=== PATIENT | male | born 1960 | race Caucasian/White ===

== ENCOUNTER → 2018-12-19 | Outpatient (CLI) | payer OTHER ==
--- NOTE | 2018-12-19 11:12 | MR ---
EXAMINATION TYPE: MR lumbar spine wo con DATE OF EXAM: 12/19/2018 COMPARISON: NONE HISTORY: Low back pain TECHNIQUE: T1 and T2 axial and sagittal images of the lumbar spine are submitted. FINDINGS: There is no abnormal signal seen within the visualized spinal cord or paraspinal soft tissu es. At T12-L1 there is no disc herniation or canal stenosis. No foraminal encroachment. At L1-2 there is loss of disc signal and space compatible degenerative disc disease. Neural foramina are patent. No canal stenosis or focal herniation. At L2-3 there is loss of disc signal. There is mild hypertrophy of the facets. There is no focal disc herniation or canal stenosis. There is mild circumferential disc bulging with mild bilateral foramin al encroachment. At L3-4 there is loss of disc signal but no discrete herniation or foraminal encroachment. No Canal s tenosis. At L4-5 there is there is broad-based central disc protrusion with mild to moderate effacement of the marcell sac. There is mild bilateral foraminal encroachment. Mild hypertrophic change of the facets. At L5-S1 there is no disc herniation or canal stenosis. No foraminal encroachment. Mild facet arthrop athy noted. IMPRESSION: 1. Broad-based central disc protrusion L4-L5 resulting in moderate effacement of thecal sac and mild central stenosis with bilateral mild foraminal encroachment. 2. Multilevel degenerative disc disease. 3. Suggestion of a probable gallstones.
== END | disposition home or self-care (01) ==
LOC: RADMRIMAIN 10:17
PROVIDERS: ATTEND Family Medicine
DX: M51.36 Other intervertebral disc degeneration, lumbar region (principal); M51.26 Other intervertebral disc displacement, lumbar region
CPT/HCPCS: 72148

== ENCOUNTER → 2019-02-05 | Outpatient (CLI) | payer OTHER ==
--- NOTE | 2019-02-05 12:37 | NM ---
EXAMINATION TYPE: NM hepatobiliary w EF DATE OF EXAM: 02/05/2019 COMPARISON: NONE HISTORY: Abdominal pain TECHNIQUE: After the intravenous administration of 4.2 mCi Tc 99m Mebrofenin hepatobiliary scintigrap hy is performed. Immediate images post injection. FINDINGS: There is satisfactory initial accumulation of tracer by the liver. The gallbladder is visualized wit hin 8 minutes. The small bowel activity is noted within 28 minutes. At one hour 8 ounces of oral en sure plus is given to mimic CCK and gallbladder ejection fraction is calculated at 48 %, in the scarlett l range. Therefore there is no scintigraphic evidence of cystic or common bile duct obstruction to s uggest acute cholecystitis or gallbladder dyskinesia. IMPRESSION: Exam is within normal limits.
== END ==
LOC: RADNMMAIN 06:41
PROVIDERS: ATTEND Family Medicine
DX: R10.9 Unspecified abdominal pain (principal)
CPT/HCPCS: 78226; A9537

== ENCOUNTER → 2019-02-17 | Outpatient (CLI) | payer OTHER ==
--- NOTE | 2019-02-17 09:55 | FL ---
EXAMINATION TYPE: FL UGI w KUB DATE OF EXAM: 02/17/2019 CLINICAL HISTORY: 58-year-old male with stomach pain and bloating after meals, abdominal pain. TECHNIQUE: A double contrast UGI study is performed. Total fluoroscopy time: 1 minute 9 seconds. Total images: 23. COMPARISON: None FINDINGS: ACDF hardware. The esophagus shows normal motility and emptying into the stomach. No evidence of hiatal hernia or stricture noted. There is trace spontaneous gastroesophageal reflux when the patient is supine. The stomach shows normal distensibility, peristalsis, and mucosal folds. No evidence of any mass or ulcer disease. The stomach appears normally positioned. The duodenal bulb and sweep are unremarkable. IMPRESSION: 1. Trace spontaneous gastroesophageal reflux when the patient is supine. No hiatal hernia seen. 2. Otherwise, unremarkable upper GI examination.
== END | disposition home or self-care (01) ==
LOC: RADUSWWP 08:26
PROVIDERS: ATTEND Family Medicine
DX: R10.9 Unspecified abdominal pain (principal)
CPT/HCPCS: 74240

== ENCOUNTER → 2021-05-17 | Outpatient (CLI) | payer OTHER ==
--- NOTE | 2021-05-17 09:16 | CT ---
EXAMINATION TYPE: CT sinus wo con DATE OF EXAM: 05/17/2021 COMPARISON: None HISTORY: Chronic Sinusitis CT DLP: 609.4 mGycm. Automated Exposure Control for Dose Reduction was Utilized. TECHNIQUE: CT scan of the sinuses is performed without contrast, axial images are obtained, coronal r eformatted images are also reviewed. FINDINGS: The paranasal sinuses including the frontal, ethmoid, sphenoid, and maxillary sinuses bila terally are well-aerated without abnormal opacification, minimal mucosal disease present in the front al ethmoidal region. The ostiomeatal complex is patent bilaterally on the coronal images. Visualized portion of mastoid air cells show no abnormal opacification. The globes are intact bilate rally. IMPRESSION: The sinuses show minimal inflammatory change frontal ethmoidal region on the right
== END | disposition home or self-care (01) ==
LOC: RADCTMAIN 06:23
PROVIDERS: ATTEND Family Medicine
DX: J32.1 Chronic frontal sinusitis (principal); J32.2 Chronic ethmoidal sinusitis
CPT/HCPCS: 70486

== ENCOUNTER → 2021-08-19 | Outpatient (CLI) | payer OTHER ==
--- NOTE | 2021-08-19 08:31 | MR ---
EXAMINATION TYPE: MR angio head wo con DATE OF EXAM: 08/19/2021 COMPARISON: NONE HISTORY: Vascular disease. Ear pulsation. TECHNIQUE: Time of flight images focusing on the [place] were performed without contrast.. 2-D and 3-D postprocessing imaging is performed on a independent workstation and reviewed. FINDINGS: There is codominant vertebral arteries filling the basilar artery. Slight irregularity or m ild narrowing along course of the basilar artery. Patent bilateral posterior communicating arteries. Hypoplastic left P1 segment. Filling of left P2 segment due to patent left-sided posterior communicat ing artery. No significant focal stenosis or aneurysm. Anterior circulation shows patent anterior communicating artery. No significant focal stenosis or ane urysm. IMPRESSION: No aneurysm at the level of the [place].
--- NOTE | 2021-08-19 08:37 | MR ---
EXAMINATION TYPE: MR brain wo con DATE OF EXAM: 08/19/2021 COMPARISON: CT brain June 12, 2014 HISTORY: Vascular disease. Ear pulsation. TECHNIQUE: Multiplanar, multisequence imaging of the brain and brainstem is performed without IV cont rast. FINDINGS: Diffusion weighted images demonstrate no evidence of a recent infarct or other diffusion abnormality. There is mild ventricular and sulcal prominence. Occasional focus of T2 hyperintensity scattered thro ughout the white matter bilaterally. Midline structures demonstrate normal morphology. The craniocervical junction appears within normal limits. Normal vascular flow voids are present. Mild to moderate mucosal thickening involving ethmoid sinuses bilaterally. Globes are intact bilaterally. No suspicious fluid signal bilateral mastoid air cells. IMPRESSION: Mild to minimal diffuse cerebral atrophy and chronic small vessel ischemic change. Mild c hronic ethmoid sinus disease. No suspicious finding to account for patient's symptoms.
== END | disposition home or self-care (01) ==
LOC: RADMRIMAIN 07:13
PROVIDERS: ATTEND Otolaryngology
DX: I67.82 Cerebral ischemia (principal); G31.9 Degenerative disease of nervous system, unspecified
CPT/HCPCS: 70544; 70551

== ENCOUNTER → 2022-06-01 | Outpatient (CLI) | payer OTHER ==
--- NOTE | 2022-06-02 04:32 | MR ---
EXAMINATION TYPE: MR lumbar spine wo con DATE OF EXAM: 06/01/2022 COMPARISON: 12/19/2018 HISTORY: Back pain Multiplanar multi echo imaging of the lumbar spine no contrast. The lumbar vertebrae have normal alignment. Disc spaces are fairly normal for age. There is minimal p osterior disc bulging at L4-5 and L1-L2 3. There is developmentally large spinal canal and no spinal stenosis. No lumbar paraspinal mass. Lumbar nerve roots appear normal. The neural foramina appear wid espinoza patent. No compression fracture. No focal bone destruction. Sacroiliac joints are intact. IMPRESSION: Mild posterior disc bulging as above. There is improvement at L4-5 compared to old exam. No spinal st enosis or fracture.
== END | disposition home or self-care (01) ==
LOC: RADMRIMAIN 19:09
PROVIDERS: ATTEND Family Medicine
DX: M51.16 Intervertebral disc disorders with radiculopathy, lumbar region (principal)
CPT/HCPCS: 72148

== ENCOUNTER 2022-06-29 21:40 | Emergency (ER) | payer OTHER ==
[2022-06-29] MEDS ORDERED: MORPHINE SULFATE 4 MG/ML SYRINGE IV STA (22:07)
[2022-06-29] MEDS ORDERED: ONDANSETRON 4 MG/2 ML VIAL IVP STA (22:07)
[2022-06-29] MEDS ORDERED: SODIUM CHLORIDE 0.9% 1,000 ML IV STA (22:07)
[2022-06-29 22:20] VITALS: TEMP 98.1
[2022-06-29 22:34] LABS: Basophils % (A) 0 %; Eosinophils # (A) 0.1 k/uL (0-0.7); Eosinophils % (A) 1 %; HCT 41.8 % (39.0-53.0); HGB 14.6 gm/dL (13.0-17.5); Lymphocytes # (A) 0.9 k/uL (1.0-4.8); Lymphocytes % (A) 9 %; MCH 31.9 pg (25.0-35.0); MCV 91.2 fL (80.0-100.0); Mean Platelet Volume 7.6; Monocytes # (A) 0.4 k/uL (0-1.0); Monocytes % (A) 4 %; Neutrophils % (A) 85 %; Platelet Count 235 k/uL (150-450); RBC 4.59 m/uL (4.30-5.90); RDW 12.8 % (11.5-15.5); WBC 10.5 k/uL (3.8-10.6)
[2022-06-29 22:42] LABS: INR 1.1 (<1.2); Partial Thromboplastin Time 24.9 sec (22.0-30.0); Prothrombin Time 11.6 sec (9.0-12.0)
[2022-06-29 22:50] LABS: Albumin 4.5 g/dL (3.5-5.0); Potassium 4.2 mmol/L (3.5-5.1); Total Bilirubin 1.5 mg/dL (0.2-1.3); Total Protein 7.3 g/dL (6.3-8.2)
[2022-06-29] MEDS ORDERED: HYDROmorphone 1 MG/ML 1 ML SYRINGE IVP STA (22:56)
--- NOTE | 2022-06-29 23:17 | CT ---
EXAMINATION TYPE: CT abdomen pelvis wo con DATE OF EXAM: 06/29/2022 COMPARISON: 07/19/2015 HISTORY: LEFT SIDED FLANK PAIN THAT RADIATES TO THE ABDOMEN CT DLP: 509 mGycm Automated exposure control for dose reduction was used. Images obtained from the diaphragm to the floor the pelvis with no contrast. Lung bases are clear of infiltrate. No pleural effusion. Heart size is normal. No pericardial effusio n. There are a few hepatic cysts that measure up to 2 cm. The bile ducts are not dilated. Spleen is inta ct. Stomach is intact. No evidence of pancreatic mass. Gallbladder appears normal. There is no adrenal mass. Kidneys have normal size. There is left-sided hydronephrosis and hydrourete r. There is obstructing 4 mm calculus at the left ureterovesical junction. Urinary bladder distends s moothly. No inguinal hernia. No free fluid in the pelvis. No pelvic mass. Appendix not clearly seen. No sign of thickened appendix. There is no mesenteric edema. No ascites or free air. No sign of a bowel obstruction. The bony struct ures are intact. The lumbar vertebrae have normal spacing and alignment. No compression fracture. The bony pelvis is i ntact. The hip joints are intact IMPRESSION: Obstructing calculus at the left ureterovesical junction with left-sided hydronephrosis and hydrouret er. Obstruction is new compared to old exam.
[2022-06-29 23:29] LABS: Appearance,Urine Cloudy (Clear); Bilirubin,Urine Negative (Negative); Blood,Urine Moderate (Negative); Color,Urine Yellow; Glucose,Urine (UA) Negative (Negative); Hyaline Casts,Urine 1 /lpf (0-2); Ketones,Urine Negative (Negative); Leukocyte Esterase,Urine Negative (Negative); Mucus,Urine Many /hpf; Nitrite,Urine Negative (Negative); PH, Urine 5.5 (5.0-8.0); Protein,Urine 1+ (Negative); RBC,Urine 49 /hpf (0-5); Specific Gravity,Urine 1.031 (1.001-1.035); Squamous Epithelial Cell,Urine 1 /hpf (0-4); Urobilinogen,Urine <2.0 mg/dL (<2.0); WBC,Urine 2 /hpf (0-5)
[2022-06-29] MEDS ORDERED: KETOROLAC 15 MG/ML 1 ML VIAL IVP STA (23:36)
[2022-06-29] MEDS ORDERED: TAMSULOSIN 0.4 MG CAP.ER.24H PO STA (23:36)
[2022-06-29] MEDS ORDERED: traMADol 50 MG STARTER PACK 3 TAB BTL PO STA (23:47)
--- NOTE | 2022-06-29 23:52 | ED ---
General Adult HPI - General Chief complaint: Abdominal Pain Stated complaint: Back pain Time Seen by Provider: 06/29/22 22:03 Source: patient Mode of arrival: ambulatory Limitations: no limitations - History of Present Illness Initial comments: Patient is a 61-year-old male presenting with chief complaint of left flank pain. Patient states the pain started about 3 hours ago. Pain wraps around to his side. Pain was sudden in onset. He admits to urinary urgency and frequency. Admits to nausea and vomiting. Denies abdominal pain. Denies fever, chills, hematuria, dysuria, chest pain, difficulty breathing, palpitations, weakness. - Related Data Home Medications Medication Instructions Recorded Confirmed Dicyclomine [Bentyl] 10 mg PO DIRECTED PRN MDD 6 08/06/14 05/01/16 Ibuprofen [Motrin] 800 mg PO DIRECTED PRN MDD 4 08/06/14 05/01/16 Loperamide [Imodium] 2 mg PO DIRECTED PRN MDD 8 08/06/14 05/01/16 Omeprazole [PriLOSEC] 20 mg PO AC-BRKFST 08/06/14 05/01/16 Pregabalin [Lyrica] 150 mg PO BID 08/06/14 05/01/16 traZODone HCL [Oleptro ER] 150 mg PO HS 08/06/14 05/01/16 Acetaminophen Tab [Tylenol Tab] 650 mg PO Q4H PRN 04/25/16 05/01/16 Butalb/APAP/Caff 50-325-40Mg 1 tab PO DIRECTED PRN 04/25/16 05/01/16 [Fioricet 50-325-40] Hydrocodone/Acetaminophen [Vicodin 2 tab PO DIRECTED PRN 04/25/16 05/01/16 5-300 mg Tablet] Leflunomide 10 mg PO DAILY 04/25/16 05/01/16 Sudafed (Unknown Dose) 1 tab PO DAILY PRN 04/25/16 Tamsulosin [Flomax] 0.4 mg PO HS 04/25/16 05/01/16 oxyCODONE-APAP 10-325MG [Percocet 1 tab PO Q6HR PRN MDD 6 04/25/16 05/01/16 10-325 mg] sulfaSALAzine [Azulfidine] 500 mg PO BID 04/25/16 05/01/16 Previous Rx's Medication Instructions Recorded HYDROcodone/APAP 7.5-325MG [Leroy 1 tab PO Q6HR PRN 3 Days #12 tab 06/29/22 7.5-325] Allergies Allergy/AdvReac Type Severity Reaction Status Date / Time No Known Allergies Allergy Verified 04/25/16 15:52 Review of Systems ROS Statement: Those systems with pertinent positive or pertinent negative responses have been documented in the HPI. ROS Other: All systems not noted in ROS Statement are negative. Past Medical History Past Medical History: GERD/Reflux, Musculoskeletal Disorder, Prostate Disorder, Rheumatoid Arthritis (RA) Additional Past Medical History / Comment(s): ENLARGED PROSTATE, BACK PAIN, STOMACH PAIN WITH CONSTIPATION & DIARRHEA.covid History of Any Multi-Drug Resistant Organisms: None Reported Past Surgical History: Back Surgery Additional Past Surgical History / Comment(s): CERVICAL SURGERY WITH PLASTIC VERTEBRAE , TEAR DUCTS, RIGHT ARM, SINUS SURGERY, TRIPLE HERNIA. Past Anesthesia/Blood Transfusion Reactions: No Reported Reaction Past Psychological History: No Psychological Hx Reported Smoking Status: Never smoker Past Alcohol Use History: None Reported Past Drug Use History: None Reported - Past Family History Mother Family Medical History: Cancer Father Family Medical History: Cancer General Exam Limitations: no limitations General appearance: alert, in no apparent distress Head exam: Present: atraumatic, normocephalic, normal inspection Eye exam: Present: normal appearance, PERRL, EOMI. Absent: scleral icterus, conjunctival injection, periorbital swelling Neck exam: Present: normal inspection Respiratory exam: Present: normal lung sounds bilaterally. Absent: respiratory distress, wheezes, rales, rhonchi, stridor Cardiovascular Exam: Present: regular rate, normal rhythm, normal heart sounds. Absent: systolic murmur, diastolic murmur, rubs, gallop, clicks Back exam: Present: tenderness. Absent: CVA tenderness (R), CVA tenderness (L) Neurological exam: Present: alert, oriented X3, CN II-XII intact Psychiatric exam: Present: normal affect, normal mood Skin exam: Present: warm, dry, intact, normal color. Absent: rash Course Vital Signs 06/29/22 06/29/22 06/30/22 21:49 22:11 00:13 Temperature 97.5 F L 98.1 F Pulse Rate 73 104 H 64 Respiratory 16 18 16 Rate Blood Pressure 122/81 132/86 122/78 O2 Sat by Pulse 99 98 98 Oximetry Medical Decision Making - Medical Decision Making Patient is a 61-year-old male presenting with chief complaint of left flank pain. Pain started today, numbness to nausea and vomiting. On examination there is tenderness on the left side, no CVA tenderness. No leukocytosis or anemia. Lactic acid 2.2, likely due to hydration status, patient is receiving fluids. Urine is positive for moderate blood. CT of the abdomen and pelvis shows 4 mm kidney stone. On reassessment after pain and nausea meds patient reports improvement in his symptoms. He'll be discharged with pain meds and instructions for urology follow-up. Follow-up with PCP. Report back to ER with any new or worsening symptoms. Discussed return parameters and answered all questions. Patient conveyed verbal understanding and agreed to the plan. I discussed this case in detail with my attending Dr. Rodriguez - Lab Data Result diagrams: 06/29/22 22:15 06/29/22 22:15 Lab Results 06/29/22 06/29/22 06/29/22 Range/Units 22:15 22:15 22:15 WBC 10.5 (3.8-10.6) k/uL RBC 4.59 (4.30-5.90) m/uL Hgb 14.6 (13.0-17.5) gm/dL Hct 41.8 (39.0-53.0) % MCV 91.2 (80.0-100.0) fL MCH 31.9 (25.0-35.0) pg MCHC 35.0 (31.0-37.0) g/dL RDW 12.8 (11.5-15.5) % Plt Count 235 (150-450) k/uL MPV 7.6 Neutrophils % 85 % Lymphocytes % 9 % Monocytes % 4 % Eosinophils % 1 % Basophils % 0 % Neutrophils # 9.0 H (1.3-7.7) k/uL Lymphocytes # 0.9 L (1.0-4.8) k/uL Monocytes # 0.4 (0-1.0) k/uL Eosinophils # 0.1 (0-0.7) k/uL Basophils # 0.0 (0-0.2) k/uL PT 11.6 (9.0-12.0) sec INR 1.1 (<1.2) APTT 24.9 (22.0-30.0) sec Sodium 138 (137-145) mmol/L Potassium 4.2 (3.5-5.1) mmol/L Chloride 105 (98-107) mmol/L Carbon Dioxide 19 L (22-30) mmol/L Anion Gap 14 mmol/L BUN 22 H (9-20) mg/dL Creatinine 1.56 H (0.66-1.25) mg/dL Est GFR (CKD-EPI)AfAm 54 (>60 ml/min/1.73 sqM) Est GFR (CKD-EPI)NonAf 47 (>60 ml/min/1.73 sqM) Glucose 122 H (74-99) mg/dL Lactic Ac Sepsis Rflx Plasma Lactic Acid Maurice (0.7-2.0) mmol/L Calcium 9.0 (8.4-10.2) mg/dL Total Bilirubin 1.5 H (0.2-1.3) mg/dL AST 27 (17-59) U/L ALT 24 (4-49) U/L Alkaline Phosphatase 66 (38-126) U/L Total Protein 7.3 (6.3-8.2) g/dL Albumin 4.5 (3.5-5.0) g/dL Amylase 68 (30-110) U/L Lipase 80 (23-300) U/L Urine Color Urine Appearance (Clear) Urine pH (5.0-8.0) Ur Specific [place] (1.001-1.035) Urine Protein (Negative) Urine Glucose (UA) (Negative) Urine Ketones (Negative) Urine Blood (Negative) Urine Nitrite (Negative) Urine Bilirubin (Negative) Urine Urobilinogen (<2.0) mg/dL Ur Leukocyte Esterase (Negative) Urine RBC (0-5) /hpf Urine WBC (0-5) /hpf Ur Squamous Epith Cells (0-4) /hpf Hyaline Casts (0-2) /lpf Urine Mucus (None) /hpf 06/29/22 06/29/22 06/29/22 Range/Units 22:15 22:52 22:56 WBC (3.8-10.6) k/uL RBC (4.30-5.90) m/uL Hgb (13.0-17.5) gm/dL Hct (39.0-53.0) % MCV (80.0-100.0) fL MCH (25.0-35.0) pg MCHC (31.0-37.0) g/dL RDW (11.5-15.5) % Plt Count (150-450) k/uL MPV Neutrophils % % Lymphocytes % % Monocytes % % Eosinophils % % Basophils % % Neutrophils # (1.3-7.7) k/uL Lymphocytes # (1.0-4.8) k/uL Monocytes # (0-1.0) k/uL Eosinophils # (0-0.7) k/uL Basophils # (0-0.2) k/uL PT (9.0-12.0) sec INR (<1.2) APTT (22.0-30.0) sec Sodium (137-145) mmol/L Potassium (3.5-5.1) mmol/L Chloride (98-107) mmol/L Carbon Dioxide (22-30) mmol/L Anion Gap mmol/L BUN (9-20) mg/dL Creatinine (0.66-1.25) mg/dL Est GFR (CKD-EPI)AfAm (>60 ml/min/1.73 sqM) Est GFR (CKD-EPI)NonAf (>60 ml/min/1.73 sqM) Glucose (74-99) mg/dL Lactic Ac Sepsis Rflx Y Plasma Lactic Acid Maurice 2.2 H* (0.7-2.0) mmol/L Calcium (8.4-10.2) mg/dL Total Bilirubin (0.2-1.3) mg/dL AST (17-59) U/L ALT (4-49) U/L Alkaline Phosphatase (38-126) U/L Total Protein (6.3-8.2) g/dL Albumin (3.5-5.0) g/dL Amylase (30-110) U/L Lipase (23-300) U/L Urine Color Yellow Urine Appearance Cloudy (Clear) Urine pH 5.5 (5.0-8.0) Ur Specific [place] 1.031 (1.001-1.035) Urine Protein 1+ H (Negative) Urine Glucose (UA) Negative (Negative) Urine Ketones Negative (Negative) Urine Blood Moderate H (Negative) Urine Nitrite Negative (Negative) Urine Bilirubin Negative (Negative) Urine Urobilinogen <2.0 (<2.0) mg/dL Ur Leukocyte Esterase Negative (Negative) Urine RBC 49 H (0-5) /hpf Urine WBC 2 (0-5) /hpf Ur Squamous Epith Cells 1 (0-4) /hpf Hyaline Casts 1 (0-2) /lpf Urine Mucus Many H (None) /hpf Disposition Clinical Impression: Kidney stone Disposition: HOME SELF-CARE Condition: Good Instructions (If sedation given, give patient instructions): Kidney Stones (ED), Flank Pain (ED) Additional Instructions: Follow-up with PCP and urologist. Report back to ER with any new or worsening symptoms. Take medication as prescribed. Prescriptions: HYDROcodone/APAP 7.5-325MG [Leroy 7.5-325] 1 tab PO Q6HR PRN 3 Days #12 tab PRN Reason: Pain Is patient prescribed a controlled substance at d/c from ED?: Yes When asked, does pt state using other controlled substances?: No If prescribed controlled substance>3 days was MAPS reviewed?: Prescribed <3 Days If opioid is for acute pain is fill amount 7 days or less?: Yes Referrals: Juan Crews DO [Primary Care Provider] - 1-2 days Time of Disposition: 23:49
[2022-06-30 00:15] VITALS: BP 122/78; PULSE 64; RESP 16
== END 2022-06-30 00:15 | disposition home or self-care (01) ==
LOC: EC 21:40
DX: N20.0 Calculus of kidney (principal); K21.9 Gastro-esophageal reflux disease without esophagitis; Z79.83 Long term (current) use of bisphosphonates; Z79.899 Other long term (current) drug therapy
CPT/HCPCS: 99284 ×2; 96374 ×2; 96375 ×4; 96361 ×2; 36415; 80053; 82150; 83605; 83690; 85025; 85610; 85730; 81001; 74176; J2270; J2405; J1170; J1885

== ENCOUNTER 2023-01-15 19:12 | Emergency (ER) | payer OTHER ==
[2023-01-15] MEDS ORDERED: SILVER sulfADIAZINE Cream 400 GM 1 APPLIC APPLIC TOPICAL STA (20:11)
[2023-01-15] MEDS ORDERED: BACITRACIN OINT 1 EACH PACKET TOPICAL ONE (20:15)
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
[2023-01-15 21:09] VITALS: BP 130/81; PULSE 62; RESP 20; TEMP 98.2
== END 2023-01-15 21:09 | disposition home or self-care (01) ==
LOC: EC 19:12
DX: T22.251A Burn of second degree of right shoulder, initial encounter (principal); T22.252A Burn of second degree of left shoulder, initial encounter; K21.9 Gastro-esophageal reflux disease without esophagitis; Z86.16 Personal history of COVID-19; Z79.899 Other long term (current) drug therapy
CPT/HCPCS: 99283

== ENCOUNTER 2023-12-24 15:10 | Inpatient (IN) | payer MEDICARE, OTHER ==
[2023-12-24 15:58] LABS: Basophils % (A) 1 %; Eosinophils # (A) 0.2 k/uL (0-0.7); Eosinophils % (A) 2 %; HCT 46.4 % (39.0-53.0); HGB 15.6 gm/dL (13.0-17.5); Lymphocytes # (A) 2.3 k/uL (1.0-4.8); Lymphocytes % (A) 30 %; MCH 31.7 pg (25.0-35.0); MCHC 33.7 g/dL (31.0-37.0); MCV 94.2 fL (80.0-100.0); Mean Platelet Volume 7.9; Monocytes # (A) 0.5 k/uL (0-1.0); Monocytes % (A) 6 %; Neutrophils # (A) 4.5 k/uL (1.3-7.7); Neutrophils % (A) 59 %; Platelet Count 227 k/uL (150-450); RBC 4.92 m/uL (4.30-5.90); WBC 7.7 k/uL (3.8-10.6)
[2023-12-24 16:18] LABS: ALT 20 U/L (4-49); AST 24 U/L (17-59); African American GFR (CKD) >90 (>60 ml/min/1.73 sqM); Albumin 4.2 g/dL (3.5-5.0); Alkaline Phosphatase 66 U/L (38-126); Anion Gap 5 mmol/L; Blood Urea Nitrogen 15 mg/dL (9-20); Calcium 9.3 mg/dL (8.4-10.2); Carbon Dioxide 27 mmol/L (22-30); Chloride 108 mmol/L (98-107); Glucose 104 mg/dL (74-99); INR 0.9 (<1.2); Non-African American GFR(CKD) 85 (>60 ml/min/1.73 sqM); Partial Thromboplastin Time 24.3 sec (22.0-30.0); Potassium 4.5 mmol/L (3.5-5.1); Prothrombin Time 10.4 sec (10.0-12.5); Sodium 140 mmol/L (137-145); Total Bilirubin 1.4 mg/dL (0.2-1.3); Total Protein 7.1 g/dL (6.3-8.2)
--- NOTE | 2023-12-24 16:41 | XR ---
EXAMINATION TYPE: XR chest 2V DATE OF EXAM: 12/24/2023 COMPARISON: NONE HISTORY: Chest pain TECHNIQUE: Frontal and lateral views of the chest are obtained. FINDINGS: There is no focal air space opacity, pleural effusion, or pneumothorax seen. The cardiac silhouette size is within normal limits. The osseous structures are intact. IMPRESSION: No acute cardiopulmonary process.
--- NOTE | 2023-12-24 17:44 | CT ---
EXAMINATION TYPE: CT chest angio for PE DATE OF EXAM: 12/24/2023 COMPARISON: None HISTORY: elevated d-dimer CT DLP: 362 mGycm Automated exposure control for dose reduction was used. CONTRAST: CT Chest for pulmonary embolism performed with with IV Contrast, patient injected with 100 ml mL of I sovue 370. FINDINGS: The lungs are clear and there is no suspicious mass. There is no airspace consolidation or abnormal i nterstitial density. There is no pleural effusion, pleural thickening or pneumothorax. The great vessels chest are normal. There are no filling defects within the pulmonary artery circulat ion to suggest pulmonary embolus. There is a mildly prominent 13 mm right hilar lymph node. Limited scanning through the upper abdomen reveals multiple hypodensities within the liver which were seen on the prior CT abdomen and pelvis dated 06/29/2022 and are stable. IMPRESSION: 1. No evidence of pulmonary visit. 2. Mildly prominent 13 mm right hilar lymph node. 3. No acute cardiopulmonary disease.
--- NOTE | 2023-12-24 18:03 | US ---
EXAMINATION TYPE: US venous doppler duplex UE LT DATE OF EXAM: 12/24/2023 COMPARISON: NONE CLINICAL INDICATION: Male, 63 years old with history of Swollen arm and painful arm; heart cath . Swelling in forearm in left forearm. SIDE PERFORMED: Left The deep venous system of the left upper extremity is patent and compressible with augmentable flow. IMPRESSION: No evidence of DVT of the left upper extremity.
--- NOTE | 2023-12-24 18:05 | US ---
EXAMINATION TYPE: US upper ext pseudo LT DATE OF EXAM: 12/24/2023 COMPARISON: NONE CLINICAL INDICATION: Male, 63 years old with history of Recent cardiac cath; Heart cath 12/12/23 with left radial approach. Left forearm swelling TECHNIQUE: Left forearm scanned FINDINGS: No evidence for pseudo seen. There is minimal blood flow seen in distal radial A. Per travis ent this is where the most pain is. IMPRESSION: 1. No evidence of pseudoaneurysm in the left wrist. 2. Minimal blood flow in the distal left radial artery.
[2023-12-24] MEDS ORDERED: NITROGLYCERIN SL TABS 0.4 MG TAB SUBLINGUAL PRN (20:46)
--- NOTE | 2023-12-24 20:46 | ED ---
General Adult HPI - General Chief complaint: Chest Pain Stated complaint: Post op chest pain, swelling in L arm Time Seen by Provider: 12/24/23 15:25 Source: patient, RN notes reviewed, old records reviewed Mode of arrival: ambulatory Limitations: no limitations - History of Present Illness Initial comments: This is a 63-year-old male who presents to the emergency department stating he had a cardiac catheterization on Sunday. Patient states he started having chest pain. Patient states he is always short of breath so is difficult to say if its gotten worse or not. Patient states he did not have chest pain right after he had a cardiac catheterization it only started today. Patient states he was told he had a 35% ejection fraction from the echo but he does not have those results and is unable to look up his results for his catheterization. Patient denies any fever chills or cough. Patient denies any trauma. Patient states he does currently still have the chest discomfort on the left side and he calls it a pressure sensation. Patient also complains of left wrist pain and left forearm pain since the Cardiac catheterization - Related Data Home Medications Medication Instructions Recorded Confirmed Dicyclomine [Bentyl] 10 mg PO DIRECTED PRN MDD 6 08/06/14 05/01/16 Ibuprofen [Motrin] 800 mg PO DIRECTED PRN MDD 4 08/06/14 05/01/16 Loperamide [Imodium] 2 mg PO DIRECTED PRN MDD 8 08/06/14 05/01/16 Omeprazole [PriLOSEC] 20 mg PO AC-BRKFST 08/06/14 05/01/16 Pregabalin [Lyrica] 150 mg PO BID 08/06/14 05/01/16 traZODone HCL [Oleptro ER] 150 mg PO HS 08/06/14 05/01/16 Acetaminophen Tab [Tylenol Tab] 650 mg PO Q4H PRN 04/25/16 05/01/16 Butalb/APAP/Caff 50-325-40Mg 1 tab PO DIRECTED PRN 04/25/16 05/01/16 [Fioricet 50-325-40] Hydrocodone/Acetaminophen [Vicodin 2 tab PO DIRECTED PRN 04/25/16 05/01/16 5-300 mg Tablet] Leflunomide 10 mg PO DAILY 04/25/16 05/01/16 Sudafed (Unknown Dose) 1 tab PO DAILY PRN 04/25/16 Tamsulosin [Flomax] 0.4 mg PO HS 04/25/16 05/01/16 oxyCODONE-APAP 10-325MG [Percocet 1 tab PO Q6HR PRN MDD 6 04/25/16 05/01/16 10-325 mg] sulfaSALAzine [Azulfidine] 500 mg PO BID 04/25/16 05/01/16 Previous Rx's Medication Instructions Recorded HYDROcodone/APAP 7.5-325MG [[place] 1 tab PO Q6HR PRN 3 Days #12 tab 06/29/22 7.5-325] Bacitracin Zinc Oint 1 applic TOPICAL DAILY #28 gm 01/15/23 Allergies Allergy/AdvReac Type Severity Reaction Status Date / Time No Known Allergies Allergy Verified 12/24/23 15:14 Review of Systems ROS Statement: Those systems with pertinent positive or pertinent negative responses have been documented in the HPI. ROS Other: All systems not noted in ROS Statement are negative. Past Medical History Past Medical History: GERD/Reflux, Musculoskeletal Disorder, Prostate Disorder, Rheumatoid Arthritis (RA) Additional Past Medical History / Comment(s): ENLARGED PROSTATE, BACK PAIN, STOMACH PAIN WITH CONSTIPATION & DIARRHEA.covid History of Any Multi-Drug Resistant Organisms: None Reported Past Surgical History: Back Surgery Additional Past Surgical History / Comment(s): CERVICAL SURGERY WITH PLASTIC VERTEBRAE , TEAR DUCTS, RIGHT ARM, SINUS SURGERY, TRIPLE HERNIA. Past Anesthesia/Blood Transfusion Reactions: No Reported Reaction Past Psychological History: No Psychological Hx Reported Smoking Status: Never smoker Past Alcohol Use History: None Reported Past Drug Use History: None Reported - Past Family History Mother Family Medical History: Cancer Father Family Medical History: Cancer General Exam - General Exam Comments Initial Comments: GENERAL: Patient is well-developed and well-nourished. Patient is nontoxic and well- hydrated and is in mild distress. ENT: Neck is soft and supple. No significant lymphadenopathy is noted. Oropharynx is clear. Moist mucous membranes. Neck has full range of motion without elicit ing any pain. EYES: The sclera were anicteric and conjunctiva were pink and moist. Extraocular m ovements were intact and pupils were equal round and reactive to light. Eyelids were unremarkable. PULMONARY: Unlabored respirations. Good breath sounds bilaterally. No audible rales rhonchi or wheezing was noted. CARDIOVASCULAR: There is a regular rate and rhythm without any murmurs gallops or rubs. ABDOMEN: Soft and nontender with normal bowel sounds. SKIN: Skin is clear with no lesions or rashes and otherwise unremarkable. NEUROLOGIC: Patient is alert and oriented x3. Cranial nerves II through XII are grossly intact. Motor and sensory are also intact. Normal speech, volume and content. Symmetrical smile. MUSCULOSKELETAL: Normal extremities with adequate strength and full range of motion. No lower extremity swelling or edema. No calf tenderness. Left forearm is mildly swollen and tender to palpation LYMPHATICS: No significant lymphadenopathy is noted PSYCHIATRIC: Normal psychiatric evaluation. Limitations: no limitations Course Vital Signs 12/24/23 12/24/23 12/24/23 15:12 16:07 18:48 Temperature 97.6 F 97.7 F Pulse Rate 59 L 54 L 54 L Respiratory 20 16 23 Rate Blood Pressure 157/68 144/88 147/70 O2 Sat by Pulse 99 98 Oximetry Medical Decision Making - Medical Decision Making EKG is interpreted by myself but EKG shows a sinus bradycardia 52 bpm parable 159 QRS is 101 QT interval 418 QTc is 397. Patient's EKG shows no ST segment ovation or depression. Was pt. sent in by a medical professional or institution (, PA, WIND INSTRUMENT REPAIRER, urgent care, hospital, or group home...) When possible be specific @ -No Did you speak to anyone other than the patient for history (EMS, parent, family, police, friend...)? What history was obtained from this source @ -No Did you review nursing and triage notes (agree or disagree)? Why? @ -I reviewed and agree with nursing and triage notes Were old charts reviewed (outside hosp., previous admission, EMS record, old EKG, old radiological studies, urgent care reports/EKG's, group home records)? Report findings @ -No old charts were reviewed Differential Diagnosis (chest pain, altered mental status, abdominal pain women, abdominal pain men, vaginal bleeding, weakness, fever, dyspnea, syncope, headache, dizziness, GI bleed, back pain, seizure, CVA, palpatations, mental health, musculoskeletal)? @ -Differential Chest Pain: Stable Angina, Unstable Angina, STEMI, NSTEMI Aortic Dissection, Pneumothorax, Musculoskeletal, Esophageal Spasm GERD, Cholecystitis, Pancreatitis, Zoster, this is not meant to be an all-inclusive list. Radial artery pseudoaneurysm, DVT, hematoma, this is not an all-inclusive list EKG interpreted by me (3pts min.). @ -As above X-rays interpreted by me (1pt min.). @ -Chest x-ray shows no acute normality CT interpreted by me (1pt min.). @ -None done U/S interpreted by me (1pt. min.). @ -Ultrasound of the wrist showed no pseudoaneurysm and ultrasound of the upper extremity showed no DVT What testing was considered but not performed or refused? (CT, X-rays, U/S, labs)? Why? @ -None What meds were considered but not given or refused? Why? @ -None Did you discuss the management of the patient with other professionals ( professionals i.e. , PA, WIND INSTRUMENT REPAIRER, lab, RT, psych nurse, director social welfare, rn documentation, teacher, affirmative action officer, comp field case manager)? Give summary @ -I spoke with [facility]ist they agreed to admit the patient admit the patient wrote admitting orders Was smoking cessation discussed for >3mins.? @ -No Was critical care preformed (if so, how long)? @ -No Were there social determinants of health that impacted care today? How? (Homelessness, low income, unemployed, alcoholism, drug addiction, transpor tation, low edu. Level, literacy, decrease access to med. care, assisted, rehab)? @ -No Was there de-escalation of care discussed even if they declined (Discuss DNR or withdrawal of care, Hospice)? DNR status @ -No What co-morbidities impacted this encounter? (DM, HTN, Smoking, COPD, CAD, Cancer, CVA, ARF, Chemo, Hep., AIDS, mental health diagnosis, sleep apnea, morbid obesity)? @ -None Was patient admitted / discharged? Hospital course, mention meds given and route, prescriptions, significant lab abnormalities, going to OR and other pertinent info. @ -Patient continued to have chest pain throughout the ED course. I spoke with [facility]ist they agreed admit the patient admit the patient wrote admitting orders. Undiagnosed new problem with uncertain prognosis? @ -No Drug Therapy requiring intensive monitoring for toxicity (Heparin, Nitro, Insulin, Cardizem)? @ -No Were any procedures done? @ -No Diagnosis/symptom? @ -Chest pain Acute, or Chronic, or Acute on Chronic? @ -Acute Uncomplicated (without systemic symptoms) or Complicated (systemic symptoms)? @ -Default Side effects of treatment? @ -No Exacerbation, Progression, or Severe Exacerbation? @ -No Poses a threat to life or bodily function? How? (Chest pain, [place], [place], pneumonia, PE, COPD, DKA, ARF, appy, cholecystitis, CVA, Diverticulitis, Homicidal, Suicidal, threat to staff... and all critical care pts) @ -Yes this could lead to an [place] and endorgan dysfunctio - Lab Data Result diagrams: 12/24/23 15:25 12/24/23 15:25 Lab Results 12/24/23 12/24/23 12/24/23 Range/Units 15:25 15:25 15:25 WBC 7.7 (3.8-10.6) k/uL RBC 4.92 (4.30-5.90) m/uL Hgb 15.6 (13.0-17.5) gm/dL Hct 46.4 (39.0-53.0) % MCV 94.2 (80.0-100.0) fL MCH 31.7 (25.0-35.0) pg MCHC 33.7 (31.0-37.0) g/dL RDW 13.0 (11.5-15.5) % Plt Count 227 (150-450) k/uL MPV 7.9 Neutrophils % 59 % Lymphocytes % 30 % Monocytes % 6 % Eosinophils % 2 % Basophils % 1 % Neutrophils # 4.5 (1.3-7.7) k/uL Lymphocytes # 2.3 (1.0-4.8) k/uL Monocytes # 0.5 (0-1.0) k/uL Eosinophils # 0.2 (0-0.7) k/uL Basophils # 0.0 (0-0.2) k/uL PT 10.4 (10.0-12.5) sec INR 0.9 (<1.2) APTT 24.3 (22.0-30.0) sec D-Dimer 0.66 H (<0.60) mg/L FEU Sodium 140 (137-145) mmol/L Potassium 4.5 (3.5-5.1) mmol/L Chloride 108 H (98-107) mmol/L Carbon Dioxide 27 (22-30) mmol/L Anion Gap 5 mmol/L BUN 15 (9-20) mg/dL Creatinine 0.95 (0.66-1.25) mg/dL Est GFR (CKD-EPI)AfAm >90 (>60 ml/min/1.73 sqM) Est GFR (CKD-EPI)NonAf 85 (>60 ml/min/1.73 sqM) Glucose 104 H (74-99) mg/dL Calcium 9.3 (8.4-10.2) mg/dL Magnesium 2.0 (1.6-2.3) mg/dL Total Bilirubin 1.4 H (0.2-1.3) mg/dL AST 24 (17-59) U/L ALT 20 (4-49) U/L Alkaline Phosphatase 66 (38-126) U/L Troponin I (0.000-0.034) ng/mL Total Protein 7.1 (6.3-8.2) g/dL Albumin 4.2 (3.5-5.0) g/dL 12/24/23 Range/Units 15:25 WBC (3.8-10.6) k/uL RBC (4.30-5.90) m/uL Hgb (13.0-17.5) gm/dL Hct (39.0-53.0) % MCV (80.0-100.0) fL MCH (25.0-35.0) pg MCHC (31.0-37.0) g/dL RDW (11.5-15.5) % Plt Count (150-450) k/uL MPV Neutrophils % % Lymphocytes % % Monocytes % % Eosinophils % % Basophils % % Neutrophils # (1.3-7.7) k/uL Lymphocytes # (1.0-4.8) k/uL Monocytes # (0-1.0) k/uL Eosinophils # (0-0.7) k/uL Basophils # (0-0.2) k/uL PT (10.0-12.5) sec INR (<1.2) APTT (22.0-30.0) sec D-Dimer (<0.60) mg/L FEU Sodium (137-145) mmol/L Potassium (3.5-5.1) mmol/L Chloride (98-107) mmol/L Carbon Dioxide (22-30) mmol/L Anion Gap mmol/L BUN (9-20) mg/dL Creatinine (0.66-1.25) mg/dL Est GFR (CKD-EPI)AfAm (>60 ml/min/1.73 sqM) Est GFR (CKD-EPI)NonAf (>60 ml/min/1.73 sqM) Glucose (74-99) mg/dL Calcium (8.4-10.2) mg/dL Magnesium (1.6-2.3) mg/dL Total Bilirubin (0.2-1.3) mg/dL AST (17-59) U/L ALT (4-49) U/L Alkaline Phosphatase (38-126) U/L Troponin I <0.012 (0.000-0.034) ng/mL Total Protein (6.3-8.2) g/dL Albumin (3.5-5.0) g/dL Disposition Clinical Impression: Chest pain Disposition: ADMITTED IP TO THIS HOSP Referrals: Juan Crews DO [Primary Care Provider] - 1-2 days Time of Disposition: 20:46
[2023-12-24] MEDS: ASPIRIN 81 MG PO STA (21:04)
[2023-12-24] MEDS: NITROGLYCERIN OINT 1 INCH/GM PACKET TOPICAL SCH (23:40)
[2023-12-25] MEDS: IBUPROFEN 800 MG TAB PO PRN (07:28)
[2023-12-25] MEDS ORDERED: ASPIRIN 325 MG TAB PO SCH (09:00)
[2023-12-25] MEDS: ASPIRIN 81 MG PO SCH (09:03)
[2023-12-25] MEDS: TAMSULOSIN 0.4 MG CAP.ER.24H PO SCH (09:03)
[2023-12-25] MEDS ORDERED: traZODone HCL 100 MG TAB PO PRN (10:30)
[2023-12-25] MEDS ORDERED: BACLOFEN 10 MG TAB PO PRN (10:30)
[2023-12-25] MEDS ORDERED: PSYLLIUM HUSK 100% 6 GM PACKET PO PRN (10:30)
[2023-12-25] MEDS ORDERED: FAMOTIDINE 20 MG TAB PO PRN (10:30)
[2023-12-25 11:56] LABS: Chol/HDL Ratio 3.17 Ratio; LDL Cholesterol,Calculated 86.7 mg/dL (0.0-131.0)
--- NOTE | 2023-12-25 12:13 | P.CRDCN ---
History of Present Illness Consult date: 12/25/23 Consult reason: chest pain History of present illness: History of present illness: This is a 63-year-old male with past medical history of rheumatoid arthritis, gastroesophageal reflux disease, remote history of tobacco use. We have been asked to evaluate the patient for chest pain. Patient underwent cardiac catheterization on Sunday at [facility]. He gives history that he has had shortness of breath with exertion and heaviness in his chest that has been going on for very long period of time and had a full pulmonary workup and now he is undergoing a cardiology workup. He underwent a cardiac catheterization was told that he had an EF of 35%. He was feeling fine when he left [facility] but developed heaviness in his chest and he called [facility] he was told to come into the emergency center. The pain last for few minutes and then goes away on its own and may return in a couple hours after that. He denies having any palpitations no sweating no nausea no other symptoms with it. He states he has had chest pain on and off for couple years. He complains of fatigue with minimal exertion. He has recently been started on lisinopril and Crestor he denies smoking and no alcohol abuse. He states he has a twin brother that also has history of a low EF. He states his blood pressure readings have been on the higher side for the last couple weeks. Patient has been scheduled at [facility] for some type of an arrhythmia study which could be EP study. He also complains of left wrist pain left forearm pain since the cardiac catheterization. Patient is seen today in the emergency center waiting for a bed on the cardiac stepdown unit. Patient is planning to have all of his cardiac workup done at [facility]. EKG sinus rhythm with no acute ST-T wave changes. Chest x-ray: No acute process. CT angiogram of the chest reveals no evidence of pulmonary embolism. Mildly prominent right hilar lymph node. No acute cardiopulmonary process. Right upper extremity ultrasound negative for pseudoaneurysm in the left wrist. Minimal blood flow in the distal left radial artery. Ultrasound duplex of the left upper extremity negative for DVT. CBC within normal limits. INR 0.9. D-dimer 0.66. Sodium 140, potassium 4.5. Creatinine 0.95. Magnesium 2. Troponin negative x 3. Home cardiac medications: Review Of Systems: At the time of my exam: CONSTITUTIONAL: Denies fever or chills. HEENT: Denies blurred vision, vision changes, or eye pain. Denies hemoptysis CARDIOVASCULAR: Denies chest pain. Denies orthopnea. Denies PND. Denies palpitations RESPIRATORY: Denies shortness of breath. GASTROINTESTINAL: Denies abdominal pain. Denies nausea or vomiting. HEMATOLOGIC: Denies bleeding disorders. GENITOURINARY: Denies any blood in urine. SKIN: Denies pruitis. Denies rash. Physical examination: Gen: This is a 63-year-old male in no acute distress VS: reviewed blood pressure 134/83, heart rate 51, pulse ox 96% on room air. HEENT: Head is atraumatic, normocephalic. Pupils equal, round. Sclerae is anicteric. NECK: Supple. No JVD. LUNGS: Clear to auscultation. No wheezes or rhonchi. No intercostal retractions. HEART: Regular rate and rhythm. No murmur. ABDOMEN: Soft No tenderness. EXTREMITIES: No pedal edema. No calf tenderness. Tenderness to the left wrist. No hematoma. Area is soft. NEUROLOGICAL: Patient is awake, alert and oriented x3. Assessment: Chest pain, acute coronary syndrome ruled out Recent cardiac catheterization presenting with left wrist pain. Ultrasound negative for pseudoaneurysm Cardiomyopathy of unclear etiology with EF reported to the patient of 35% Rheumatoid arthritis Gastroesophageal reflux disease Remote history of tobacco use and dependence Plan: Resume patient's home cardiac medications No need to obtain echocardiogram Patient is cleared for discharge from cardiology and may follow-up with cardiolo gist at [facility] as scheduled. Thank you kindly for this consultation. Nurse practitioner note has been reviewed, I agree with documented findings and plan of care. Patient was seen and examined. Past Medical History Past Medical History: GERD/Reflux, Musculoskeletal Disorder, Prostate Disorder, Rheumatoid Arthritis (RA) Additional Past Medical History / Comment(s): ENLARGED PROSTATE, BACK PAIN, STOMACH PAIN WITH CONSTIPATION & DIARRHEA.covid History of Any Multi-Drug Resistant Organisms: None Reported Past Surgical History: Back Surgery Additional Past Surgical History / Comment(s): CERVICAL SURGERY WITH PLASTIC VERTEBRAE , TEAR DUCTS, RIGHT ARM, SINUS SURGERY, TRIPLE HERNIA. Past Anesthesia/Blood Transfusion Reactions: No Reported Reaction Past Psychological History: No Psychological Hx Reported Smoking Status: Never smoker Past Alcohol Use History: None Reported Past Drug Use History: None Reported - Past Family History Mother Family Medical History: Cancer Father Family Medical History: Cancer Medications and Allergies Home Medications Medication Instructions Recorded Confirmed Type Ibuprofen [Motrin] 800 mg PO Q8H PRN 08/06/14 12/24/23 History Tamsulosin [Flomax] 0.4 mg PO DAILY 04/25/16 12/24/23 History Baclofen 5 mg PO TID PRN 12/25/23 12/25/23 History Famotidine [Pepcid] 20 mg PO DAILY PRN 12/25/23 12/25/23 History Hydroxychloroquine Sulfate 200 mg PO DIRECTED 12/25/23 12/25/23 History [Plaquenil] Psyllium Husk (with Sugar) [Fiber 1 tsp PO DAILY PRN 12/25/23 12/25/23 History Powder] Rosuvastatin [Crestor] 20 mg PO DAILY 12/25/23 12/25/23 History Terazosin [Hytrin] 5 mg PO HS 12/25/23 12/25/23 History Tolterodine ER [Detrol LA] 4 mg PO HS 12/25/23 12/25/23 History lisinopriL [Zestril] 2.5 mg PO DAILY 12/25/23 12/25/23 History traZODone HCL 150 mg PO HS PRN 12/25/23 12/25/23 History Allergies Allergy/AdvReac Type Severity Reaction Status Date / Time No Known Allergies Allergy Verified 12/24/23 20:51 Physical Exam Vitals: Vital Signs Temp Pulse Resp BP Pulse Ox 12/25/23 06:00 51 L 18 134/83 96 12/25/23 03:00 56 L 18 121/68 96 12/25/23 02:00 52 L 20 117/78 96 12/25/23 01:00 53 L 12 138/83 97 12/24/23 23:00 57 L 18 122/95 98 12/24/23 22:00 65 22 138/87 98 12/24/23 21:00 56 L 23 157/68 97 12/24/23 20:00 50 L 19 141/89 99 12/24/23 19:19 53 L 19 131/88 99 12/24/23 18:48 97.7 F 54 L 23 147/70 98 12/24/23 16:07 54 L 16 144/88 12/24/23 15:12 97.6 F 59 L 20 157/68 99 Intake and Output 12/24/23 12/25/23 12/25/23 22:59 06:59 14:59 Other: Weight 81.647 kg Results 12/24/23 15:25 12/24/23 15:25 Cardiac Enzymes 12/24/23 12/24/23 12/24/23 Range/Units 15:25 15:25 21:30 AST 24 (17-59) U/L Troponin I <0.012 <0.012 (0.000-0.034) ng/mL 12/25/23 Range/Units 00:16 AST (17-59) U/L Troponin I <0.012 (0.000-0.034) ng/mL Coagulation 12/24/23 Range/Units 15:25 PT 10.4 (10.0-12.5) sec APTT 24.3 (22.0-30.0) sec CBC 12/24/23 Range/Units 15:25 WBC 7.7 (3.8-10.6) k/uL RBC 4.92 (4.30-5.90) m/uL Hgb 15.6 (13.0-17.5) gm/dL Hct 46.4 (39.0-53.0) % Plt Count 227 (150-450) k/uL Comprehensive Metabolic Panel 12/24/23 Range/Units 15:25 Sodium 140 (137-145) mmol/L Potassium 4.5 (3.5-5.1) mmol/L Chloride 108 H (98-107) mmol/L Carbon Dioxide 27 (22-30) mmol/L BUN 15 (9-20) mg/dL Creatinine 0.95 (0.66-1.25) mg/dL Glucose 104 H (74-99) mg/dL Calcium 9.3 (8.4-10.2) mg/dL AST 24 (17-59) U/L ALT 20 (4-49) U/L Alkaline Phosphatase 66 (38-126) U/L Total Protein 7.1 (6.3-8.2) g/dL Albumin 4.2 (3.5-5.0) g/dL Current Medications Generic Name Dose Route Start Last Admin Trade Name Freq PRN Reason Stop Dose Admin Aspirin 325 mg 12/25/23 09:00 Aspirin 325 Mg Tab PO DAILY RUBEN Ibuprofen 800 mg 12/24/23 21:14 12/25/23 07:28 Ibuprofen 800 Mg Tab PO 800 mg Q8H PRN Administration Pain Nitroglycerin 0.4 mg 12/24/23 20:46 Nitroglycerin Sl Tabs 0.4 Mg Tab SUBLINGUAL Q5M PRN Chest Pain Nitroglycerin 1 inch 12/25/23 00:00 12/25/23 06:04 Nitroglycerin Oint 1 Inch/Gm Packet TOPICAL 1 inch Q6HR RUBEN Administration Tamsulosin HCl 0.4 mg 12/25/23 09:00 Tamsulosin 0.4 Mg Cap.Er.24h PO DAILY RUBEN Intake and Output 12/24/23 12/25/23 12/25/23 22:59 06:59 14:59 Other: Weight 81.647 kg 12/24/23 15:25 12/24/23 15:25
[2023-12-25] MEDS: ATORVASTATIN 40 MG TAB PO SCH (12:35)
[2023-12-25] MEDS: ENOXAPARIN 40 MG/0.4 ML SYRINGE SQ SCH (12:36)
[2023-12-25 12:45] VITALS: BP 108/62; PULSE 64; RESP 18; TEMP 97.8
--- NOTE | 2023-12-25 15:23 | CA ---
Transthoracic Echo Report Name: Partha Ravi Age: 63 Gender: M : 1960 Exam Date: 12/25/2023 10:00 Exam Location: [facility] Ht (in): 71 Wt (lb): 180 Ordering Physician: Jesus Ashford MD Attending/Referring Phys: Regional Controller Maryam Molina RDCS Procedure CPT: Indications: Chest Pain Cardiac Hx: Technical Quality: Fair Contrast 1: Total Dose (mL): Contrast 2: Total Dose (mL): MEASUREMENTS (Male / Female) Normal Values 2D ECHO LV Diastolic Diameter PLAX 5.7 cm 4.2 - 5.9 / 3.9 - 5.3 cm LV Systolic Diameter PLAX 3.7 cm IVS Diastolic Thickness 1.1 cm 0.6 - 1.0 / 0.6 - 0.9 cm LVPW Diastolic Thickness 1.1 cm 0.6 - 1.0 / 0.6 - 0.9 cm LV Relative Wall Thickness 0.4 RV Internal Dim ED PLAX 2.1 cm LA Systolic Diameter LX 3.8 cm 3.0 - 4.0 / 2.7 - 3.8 cm LV Diastolic Volume MOD BP 91.5 cm??? 67 - 155 / 56 - 104 cm??? LV Systolic Volume MOD BP 48.3 cm??? 22 - 58 / 19 - 49 cm??? LV Ejection Fraction MOD BP 47.2 % >= 55 % LV Cardiac Index MOD BP 936.3 cm???/min???m??? LV Diastolic Volume MOD 4C 108.6 cm??? LV Systolic Volume MOD 4C 53.1 cm??? LV Ejection Fraction MOD 4C 51.1 % LV Cardiac Index MOD 4C 1202.1 cm???/min???m??? LV Diastolic Length 4C 7.7 cm LV Systolic Length 4C 6.3 cm LV Diastolic Volume MOD 2C 71.9 cm??? LV Systolic Volume MOD 2C 43.1 cm??? LV Ejection Fraction MOD 2C 40.1 % LV Cardiac Index MOD 2C 623.8 cm???/min???m??? LV Diastolic Length 2C 7.1 cm LV Systolic Length 2C 6.2 cm M-MODE Aortic Root Diameter MM 2.8 cm LA Systolic Diameter MM 3.1 cm LA Ao Ratio MM 1.1 AV Cusp Separation MM 1.6 cm DOPPLER AV Peak Velocity 124.0 cm/s AV Peak Gradient 6.1 mmHg AI Peak Velocity 290.2 cm/s AI Peak Gradient 33.7 mmHg AI Pressure Half Time 1513.8 ms MV Area PHT 1.4 cm??? Mitral E Point Velocity 36.9 cm/s Mitral A Point Velocity 52.8 cm/s Mitral E to A Ratio 0.7 MV Deceleration Time 551.7 ms TR Peak Velocity 215.0 cm/s TR Peak Gradient 18.5 mmHg Right Ventricular Systolic Press 22.9 mmHg PV Peak Velocity 88.1 cm/s PV Peak Gradient 3.1 mmHg FINDINGS Left Ventricle Left ventricular ejection fraction is estimated at 35-40%. Mildly decreased left ventricular ejection fraction. Moderately reduced global left ventricular systolic function. Left ventricular cavity size normal. Right Ventricle Mild right ventricular dilatation. Right ventricular systolic pressure within normal limits. Right Atrium Mild right atrial dilatation. Left Atrium Mild left atrial dilatation. Mitral Valve Structurally normal mitral valve. Mild mitral regurgitation. No mitral stenosis. Aortic Valve Trileaflet aortic valve. Trace to mild aortic regurgitation. Tricuspid Valve Mild tricuspid regurgitation. Structurally normal tricuspid valve. Pulmonic Valve Structurally normal pulmonic valve. Trace pulmonic regurgitation. Pericardium No pericardial or pleural effusion. Aorta Normal size aortic root and proximal ascending aorta. CONCLUSIONS Reduced LV systolic function, global Mild right ventricular enlargement Prominent posterior pericardial stripe Previewed by: Dr. Ken Rascon MD (Electronically Signed) Final Date: 25 December 2023 15:22
--- NOTE | 2023-12-25 16:18 | P.HPIM ---
History of Present Illness H&P Date: 12/25/23 Chief Complaint: Chest pain This is a pleasant 63-year-old patient follows with Dr. Crews. [facility]. Chronic stable medical conditions include BPH, rheumatoid arthritis, chronic cough after COVID. DJD. Patient underwent a cardiac catheterization by his metal spinner about 6 days ago. He was told his ejection fraction is 35%. No blockages. Patient is also due for arrhythmia test a week from now. Sometime before the cardiac catheterization patient's had left infraclavicular pain. Not related to activity. Not better or worse with deep breathing. No radiation. No dizziness no lightheadedness. Decided to come in for the same. Patient has a nonproductive chronic cough after his COVID. His chest pain is not related to activity. No fever no chills. Patient's and 2 sons at the bedside in the ER. Review of systems: GEN.: None EYES: None HEENT: None NECK: None RESPIRATORY: None CARDIOVASCULAR: None GASTROINTESTINAL: None GENITOURINARY: None MUSCULOSKELETAL: [Joint pains LYMPHATICS: None HEMATOLOGICAL: None PSYCHIATRY: None NEUROLOGICAL: None Social history: . Lives with his . Used to work at [employer]. Retired. Smoked about a pack and a half for 34 years stopped about 30 years ago. Physical examination: VITAL SIGNS: 97.7, 54, 23, 170 x 70, 98% room air GENERAL: BMI 25.1,. Sitting at edge of the bed, awake, comfortable EYES: Pupils equal. Conjunctiva scarlett l. HEENT: External appearance of nose and ears normal, oral cavity grossly normal. NECK: JVD not raised; masses not palpable. HEART: First and second heart sounds are normal; no edema. LUNGS: Respiratory rate normal; clear to auscultation. ABDOMEN: Soft, nontender, liver spleen not palpable, no masses palpable. PSYCH: Alert and oriented x3; mood and affect scarlett l. MUSCULOSKELETAL:No Clubbing/cyanosis;muscles-grossly intact. OA NEUROLOGICAL: Cranial nerves grossly intact; no facial asymmetry, power and sensation grossly intact. LYMPHATICS: No lymph nodes palpable in the axilla and neck INVESTIGATIONS, reviewed in the clinical context: December 24, 2023: White count 7.7 hemoglobin 13.6 platelets 227 sodium 140 pota ssium 4.5 creatinine 0.95 Troponin I less than 0.012 x 3 Chest x-ray film personally reviewed by me-mild hyperinflation CT chest angio for PE: Negative for PE. Ultrasound upper extremity left: No evidence of pseudoaneurysm. Ultrasound venous Doppler left upper extremity: Negative for DVT. LDL 86.7 D-dimer 0.66 Assessment plan: -Left anterior chest wall, infraclavicular pain present for a few days. Had a catheterization about 6 days ago. Was told no significant coronary artery disease. Pain not related to activity. Not related to breathing. PE ruled out. Possibly musculoskeletal. Cardiology consulted -Chronic congestive heart failure systolic dysfunction EF 35%. Cause unknown. Patient is being worked up by his [place] metal spinner. -BPH Flomax 0.4 mg a day. Detrol LA 4 mg nightly -GERD Pepcid as needed -Essential hypertension Zestril 2.5 mg a day. -Primary osteoarthritis Motrin. Baclofen. Home medication resumed. Cardiology consulted. 2D echo was ordered. Past Medical History Past Medical History: GERD/Reflux, Musculoskeletal Disorder, Prostate Disorder, Rheumatoid Arthritis (RA) Additional Past Medical History / Comment(s): ENLARGED PROSTATE, BACK PAIN, STOMACH PAIN WITH CONSTIPATION & DIARRHEA.covid History of Any Multi-Drug Resistant Organisms: None Reported Past Surgical History: Back Surgery Additional Past Surgical History / Comment(s): CERVICAL SURGERY WITH PLASTIC VERTEBRAE , TEAR DUCTS, RIGHT ARM, SINUS SURGERY, TRIPLE HERNIA. Past Anesthesia/Blood Transfusion Reactions: No Reported Reaction Past Psychological History: No Psychological Hx Reported Smoking Status: Never smoker Past Alcohol Use History: None Reported Past Drug Use History: None Reported - Past Family History Mother Family Medical History: Cancer Father Family Medical History: Cancer Medications and Allergies Home Medications Medication Instructions Recorded Confirmed Type Ibuprofen [Motrin] 800 mg PO Q8H PRN 08/06/14 12/24/23 History Tamsulosin [Flomax] 0.4 mg PO DAILY 04/25/16 12/24/23 History Aspirin 81 mg PO DAILY tab 12/25/23 Rx Baclofen 5 mg PO TID PRN 12/25/23 12/25/23 History Famotidine [Pepcid] 20 mg PO DAILY PRN 12/25/23 12/25/23 History Hydroxychloroquine Sulfate 200 mg PO DIRECTED 12/25/23 12/25/23 History [Plaquenil] Psyllium Husk (with Sugar) [Fiber 1 tsp PO DAILY PRN 12/25/23 12/25/23 History Powder] Rosuvastatin [Crestor] 20 mg PO DAILY 12/25/23 12/25/23 History Terazosin [Hytrin] 5 mg PO HS 12/25/23 12/25/23 History Tolterodine ER [Detrol LA] 4 mg PO HS 12/25/23 12/25/23 History lisinopriL [Zestril] 2.5 mg PO DAILY 12/25/23 12/25/23 History traZODone HCL 150 mg PO HS PRN 12/25/23 12/25/23 History Allergies Allergy/AdvReac Type Severity Reaction Status Date / Time No Known Allergies Allergy Verified 12/24/23 20:51 Physical Exam Vitals: Vital Signs Temp Pulse Resp BP Pulse Ox 12/25/23 10:00 58 L 16 136/89 12/25/23 09:00 44 L 18 131/74 95 12/25/23 08:00 49 L 18 137/95 95 12/25/23 06:00 51 L 18 134/83 96 12/25/23 03:00 56 L 18 121/68 96 12/25/23 02:00 52 L 20 117/78 96 12/25/23 01:00 53 L 12 138/83 97 12/24/23 23:00 57 L 18 122/95 98 12/24/23 22:00 65 22 138/87 98 12/24/23 21:00 56 L 23 157/68 97 12/24/23 20:00 50 L 19 141/89 99 12/24/23 19:19 53 L 19 131/88 99 12/24/23 18:48 97.7 F 54 L 23 147/70 98 12/24/23 16:07 54 L 16 144/88 12/24/23 15:12 97.6 F 59 L 20 157/68 99 Intake and Output 12/24/23 12/25/23 12/25/23 22:59 06:59 14:59 Other: Weight 81.647 kg Results CBC & Chem 7: 12/24/23 15:25 12/24/23 15:25 Labs: Abnormal Lab Results - Last 24 Hours (Table) 12/24/23 12/24/23 Range/Units 15:25 15:25 D-Dimer 0.66 H (<0.60) mg/L FEU Chloride 108 H (98-107) mmol/L Glucose 104 H (74-99) mg/dL Total Bilirubin 1.4 H (0.2-1.3) mg/dL
--- NOTE | 2023-12-25 19:41 | P.DS ---
Providers Date of admission: 12/24/23 20:48 Expected date of discharge: 12/25/23 Attending physician: Yaya Ruffin Consults: 12/24/23 20:46 Consult Physician Urgent Consulting Provider: [facility] Consult Reason/Comments: Chest pain Do you want consulting provider notified?: Yes Primary care physician: [facility] Course: Chief Complaint: Chest pain This is a pleasant 63-year-old patient follows with Dr. Crews. [facility]. Chronic stable medical conditions include BPH, rheumatoid arthritis, chronic cough after COVID. DJD. Patient underwent a cardiac catheterization by his home health aide about 6 days ago. He was told his ejection fraction is 35%. No blockages. Patient is also due for arrhythmia test a week from now. Sometime before the cardiac catheterization patient's had left infraclavicular pain. Not related to activity. Not better or worse with deep breathing. No radiation. No dizziness no lightheadedness. Decided to come in for the same. Patient has a nonproductive chronic cough after his COVID. His chest pain is not related to activity. No fever no chills. Patient's and 2 sons at the bedside in the ER. Seen by cardiology. Cleared for discharge. Follow-up with his own home health aide. Possibly musculoskeletal pain. 2D echo shows EF of 35 to 40%. Social history: . Lives with his . Used to work at [employer]. Retired. Smoked about a pack and a half for 34 years stopped about 30 years ago. Physical examination: VITAL SIGNS: 97.7, 54, 23, 170 x 70, 98% room air GENERAL: BMI 25.1,. Sitting at edge of the bed, awake, comfortable EYES: Pupils equal. Conjunctiva scarlett l. HEENT: External appearance of nose and ears normal, oral cavity grossly normal. NECK: JVD not raised; masses not palpable. HEART: First and second heart sounds are normal; no edema. LUNGS: Respiratory rate normal; clear to auscultation. ABDOMEN: Soft, nontender, liver spleen not palpable, no masses palpable. PSYCH: Alert and oriented x3; mood and affect scarlett l. MUSCULOSKELETAL:No Clubbing/cyanosis;muscles-grossly intact. OA NEUROLOGICAL: Cranial nerves grossly intact; no facial asymmetry, power and sensation grossly intact. LYMPHATICS: No lymph nodes palpable in the axilla and neck INVESTIGATIONS, reviewed in the clinical context: December 24, 2023: White count 7.7 hemoglobin 13.6 platelets 227 sodium 140 potassium 4.5 creatinine 0.95 Troponin I less than 0.012 x 3 Chest x-ray film personally reviewed by me-mild hyperinflation CT chest angio for PE: Negative for PE. Ultrasound upper extremity left: No evidence of pseudoaneurysm. Ultrasound venous Doppler left upper extremity: Negative for DVT. LDL 86.7 D-dimer 0.66 Assessment plan: -Left anterior chest wall, infraclavicular pain present for a few days. Had a catheterization about 6 days ago. Was told no significant coronary artery disease. Pain not related to activity. Not related to breathing. PE ruled out. Possibly musculoskeletal. Cardiology consulted -Chronic congestive heart failure systolic dysfunction EF 35%-40. Cause unknown. Patient is being worked up by his [place] home health aide. -BPH Flomax 0.4 mg a day. Detrol LA 4 mg nightly -GERD Pepcid as needed -Essential hypertension Zestril 2.5 mg a day. -Primary osteoarthritis Motrin. Baclofen. Disposition: Home Past Medical History Past Medical History: GERD/Reflux, Musculoskeletal Disorder, Prostate Disorder, Rheumatoid Arthritis (RA) Additional Past Medical History / Comment(s): ENLARGED PROSTATE, BACK PAIN, STOMACH PAIN WITH CONSTIPATION & DIARRHEA.covid History of Any Multi-Drug Resistant Organisms: None Reported Past Surgical History: Back Surgery Additional Past Surgical History / Comment(s): CERVICAL SURGERY WITH PLASTIC VERTEBRAE , TEAR DUCTS, RIGHT ARM, SINUS SURGERY, TRIPLE HERNIA. Past Anesthesia/Blood Transfusion Reactions: No Reported Reaction Past Psychological History: No Psychological Hx Reported Smoking Status: Never smoker Past Alcohol Use History: None Reported Past Drug Use History: None Reported Plan - Discharge Summary New Discharge Prescriptions: New Aspirin 81 mg PO DAILY tab Continue Ibuprofen [Motrin] 800 mg PO Q8H PRN PRN Reason: Pain Tamsulosin [Flomax] 0.4 mg PO DAILY Baclofen 5 mg PO TID PRN PRN Reason: Muscle Spasm Rosuvastatin [Crestor] 20 mg PO DAILY Tolterodine ER [Detrol LA] 4 mg PO HS Famotidine [Pepcid] 20 mg PO DAILY PRN PRN Reason: acid reflux Hydroxychloroquine Sulfate [Plaquenil] 200 mg PO DIRECTED lisinopriL [Zestril] 2.5 mg PO DAILY Psyllium Husk (with Sugar) [Fiber Powder] 1 tsp PO DAILY PRN PRN Reason: Constipation Terazosin [Hytrin] 5 mg PO HS traZODone HCL 150 mg PO HS PRN PRN Reason: sleep Discharge Medication List Ibuprofen [Motrin] 800 mg PO Q8H PRN 08/06/14 [History] Tamsulosin [Flomax] 0.4 mg PO DAILY 04/25/16 [History] Aspirin 81 mg PO DAILY tab 12/25/23 [Rx] Baclofen 5 mg PO TID PRN 12/25/23 [History] Famotidine [Pepcid] 20 mg PO DAILY PRN 12/25/23 [History] Hydroxychloroquine Sulfate [Plaquenil] 200 mg PO DIRECTED 12/25/23 [History] Psyllium Husk (with Sugar) [Fiber Powder] 1 tsp PO DAILY PRN 12/25/23 [History] Rosuvastatin [Crestor] 20 mg PO DAILY 12/25/23 [History] Terazosin [Hytrin] 5 mg PO HS 12/25/23 [History] Tolterodine ER [Detrol LA] 4 mg PO HS 12/25/23 [History] lisinopriL [Zestril] 2.5 mg PO DAILY 12/25/23 [History] traZODone HCL 150 mg PO HS PRN 12/25/23 [History] Follow up Appointment(s)/Referral(s): own-home health aidedr [Other] - 1 Week Juan Crews DO [Primary Care Provider] - 1-2 days Patient Instructions/Handouts: Chest Pain (DC) Discharge Disposition: HOME SELF-CARE
[2023-12-25] MEDS ORDERED: OXYBUTYNIN 10 MG TAB.ER.24 PO SCH (21:00)
[2023-12-25] MEDS ORDERED: DOXAZOSIN 4 MG TAB PO SCH (21:00)
== END 2023-12-25 12:53 | disposition home or self-care (01) | DRG 313 ==
LOC: EC 15:10 → 3SCARD 20:48
PROVIDERS: ADMIT Hospitalist; ATTEND Hospitalist
DX: R07.89 Other chest pain (principal); I50.32 Chronic diastolic (congestive) heart failure; I11.0 Hypertensive heart disease with heart failure; I08.3 Combined rheumatic disorders of mitral, aortic and tricuspid valves; K21.9 Gastro-esophageal reflux disease without esophagitis; M06.9 Rheumatoid arthritis, unspecified; M19.90 Unspecified osteoarthritis, unspecified site; N40.0 Benign prostatic hyperplasia without lower urinary tract symptoms; Z79.82 Long term (current) use of aspirin; Z79.899 Other long term (current) drug therapy; Z87.891 Personal history of nicotine dependence
CPT/HCPCS: 36415; 71046; 71275; 80053; 80061; 83735; 84484; 85025; 85379; 85610; 85730; 93005; 93306; 99285